=== PATIENT | male | born 1965 | race Hispanic/Latino ===

== ENCOUNTER 2023-04-13 10:04 | Inpatient (IN) | payer BC, OTHER ==
[~2023-04-13] VITALS: Ht 180.3 cm; Wt 95.3 kg
[2023-04-13] MEDS ORDERED: CEFAZOLIN SODIUM 2 GM VIAL IVPB STA (10:52)
[2023-04-13] MEDS ORDERED: 0.9%NACL 1000ML 1,000 ML IV ONE (11:00)
[2023-04-13 11:25] LABS: BASOPHILS # (AUTO) 0.02 K/uL (0.00-0.20); BASOPHILS % (AUTO) 0.2 % (0.0-5.0); EOSINOPHILS # (AUTO) 0.15 K/uL (0.00-0.70); EOSINOPHILS % (AUTO) 1.7 % (0.0-8.0); HEMATOCRIT 38.5 % (42-54); IMMATURE GRANULOCYTE ABSOLUTE 0.03 K/uL (0-1); LYMPHOCYTES # (AUTO) 1.3 K/uL (1.0-4.8); LYMPHOCYTES % (AUTO) 15.1 % (21.0-51.0); MEAN CORPUSCULAR HEMOGLOBIN 26.6 pg (27.0-33.0); MEAN CORPUSCULAR HGB CONC 31.4 g/dL (32.0-36.0); MEAN CORPUSCULAR VOLUME 84.6 fL (79-99); MONOCYTES % (AUTO) 10.8 % (3.0-13.0); NEUTROPHILS # (AUTO) 6.3 K/uL (1.8-7.7); NEUTROPHILS % (AUTO) 71.9 % (40.0-77.0); PLATELET COUNT (AUTO) 256 K/uL (130-400); RED BLOOD CELL COUNT(AUTO) 4.55 MIL/uL (4.50-6.20); RED CELL DISTRIBUTION WIDTH 16.7 % (11.0-15.5); WHITE BLOOD COUNT (AUTO) 8.8 K/uL (4.8-10.8)
[2023-04-13] MEDS ORDERED: DIPH,PERTUSS(ACELL),TET VAC/PF 0.5 ML VIAL IM ONE (11:30)
[2023-04-13 11:45] LABS: CREATININE 0.7 mg/dL (0.5-1.5); POTASSIUM 3.7 mmol/L (3.5-5.1)
[2023-04-13 11:50] LABS: ALBUMIN 3.2 g/dL (3.5-5.0); BILIRUBIN,TOTAL 0.3 mg/dL (0.2-1.0); TOTAL PROTEIN, SERUM 7.3 g/dL (6.0-8.3)
[2023-04-13] MEDS ORDERED: ACETAMINOPHEN 325 MG TAB PO PRN (14:30)
[2023-04-13] MEDS ORDERED: LACTULOSE 20 GM/30 ML UDCUP PO PRN (14:30)
[2023-04-13] MEDS ORDERED: ONDANSETRON 4MG INJ IV PRN (14:30)
[2023-04-13] MEDS ORDERED: VANCOMYCIN PROTOCOL PER PHARMACY IV PRN (14:30)
[2023-04-13] MEDS ORDERED: GUAIFENESIN-DM 200/20 MG 10 ML PO PRN (14:30)
[2023-04-13] MEDS ORDERED: NITROGLYCERIN 0.4 MG SL TAB SL PRN (14:30)
[2023-04-13] MEDS ORDERED: VANCOMYCIN 1G/250ML KIT 250 ML IV SCH (14:30)
[2023-04-13] MEDS ORDERED: MAG/ALUM/SIMETH 30 ML UDCUP PO PRN (14:30)
[2023-04-13] MEDS: VANCOMYCIN 1.25 GM/250 ML BAG 250 ML IV SCH ×2 (15:11→22:26)
[2023-04-13] MEDS: FAMOTIDINE 20MG VIAL IV SCH (20:15)
[2023-04-13] MEDS: ZOSYN 3.375GM+NS 50ML 50 ML IV SCH (20:15)
[2023-04-13] MEDS: MORPHINE 4 MG SYG IV PRN (20:36)
[2023-04-13 20:55] VITALS: O2SAT 96
[2023-04-13] MEDS: MUPIROCIN OINTMENT 22 GM TUBE TP SCH (21:10)
[2023-04-13] MEDS: ACETAMINOPHEN WITH CODEINE 1 TAB TAB PO PRN (23:34)
[2023-04-14] VITALS (9 sets, daily range): BP systolic 78–178; BP diastolic 53–105; PULSE 65–90; RESP 16–20; O2SAT 94–100
[2023-04-14] MEDS: MORPHINE 4 MG SYG IV PRN ×2 (03:54→20:43)
[2023-04-14] MEDS: ZOSYN 3.375GM+NS 50ML 50 ML IV SCH ×3 (03:54→20:42)
[2023-04-14] MEDS: VANCOMYCIN 1.25 GM/250 ML BAG 250 ML IV SCH ×3 (05:51→22:24)
[2023-04-14] MEDS: FAMOTIDINE 20MG VIAL IV SCH ×2 (08:54→20:42)
[2023-04-14] MEDS: HYDRALAZINE 20MG/ML VIAL IV PRN (08:54)
[2023-04-14] MEDS: ENOXAPARIN SODIUM 40 MG/0.4 ML SYRINGE SQ SCH (09:04)
[2023-04-14] MEDS: MUPIROCIN OINTMENT 22 GM TUBE TP SCH ×2 (09:05→14:46)
[2023-04-14] MEDS ORDERED: LOSARTAN 25 MG TABLET PO ONE (13:00)
[2023-04-14] MEDS: LOSARTAN 25 MG TABLET PO SCH (20:42)
[2023-04-15] VITALS (8 sets, daily range): BP systolic 125–148; BP diastolic 83–96; PULSE 71–96; RESP 18–20; O2SAT 94
[2023-04-15] MEDS: HYDRALAZINE 20MG/ML VIAL IV PRN (00:15)
[2023-04-15] MEDS: ZOSYN 3.375GM+NS 50ML 50 ML IV SCH (04:12)
[2023-04-15 04:48] LABS: BASOPHILS # (AUTO) 0.04 K/uL (0.00-0.20); BASOPHILS % (AUTO) 0.7 % (0.0-5.0); EOSINOPHILS # (AUTO) 0.15 K/uL (0.00-0.70); EOSINOPHILS % (AUTO) 2.6 % (0.0-8.0); HEMATOCRIT 40.8 % (42-54); IMMATURE GRANULOCYTE ABSOLUTE 0.01 K/uL (0-1); LYMPHOCYTES # (AUTO) 1.5 K/uL (1.0-4.8); LYMPHOCYTES % (AUTO) 25.5 % (21.0-51.0); MEAN CORPUSCULAR HEMOGLOBIN 26.3 pg (27.0-33.0); MEAN CORPUSCULAR HGB CONC 31.4 g/dL (32.0-36.0); MEAN CORPUSCULAR VOLUME 83.8 fL (79-99); MONOCYTES # (AUTO) 0.7 K/uL (0.1-1.0); MONOCYTES % (AUTO) 12.3 % (3.0-13.0); NEUTROPHILS # (AUTO) 3.3 K/uL (1.8-7.7); NEUTROPHILS % (AUTO) 58.7 % (40.0-77.0); PLATELET COUNT (AUTO) 280 K/uL (130-400); RED BLOOD CELL COUNT(AUTO) 4.87 MIL/uL (4.50-6.20); RED CELL DISTRIBUTION WIDTH 16.6 % (11.0-15.5); WHITE BLOOD COUNT (AUTO) 5.7 K/uL (4.8-10.8)
[2023-04-15 05:14] LABS: CREATININE 0.7 mg/dL (0.5-1.5); POTASSIUM 3.2 mmol/L (3.5-5.1)
[2023-04-15] MEDS: VANCOMYCIN 1.25 GM/250 ML BAG 250 ML IV SCH (05:49)
[2023-04-15] MEDS: FAMOTIDINE 20MG VIAL IV SCH ×2 (10:05→20:55)
[2023-04-15] MEDS: ENOXAPARIN SODIUM 40 MG/0.4 ML SYRINGE SQ SCH (10:06)
[2023-04-15] MEDS: LOSARTAN 25 MG TABLET PO SCH ×2 (10:06→20:55)
[2023-04-15] MEDS: MORPHINE 4 MG SYG IV PRN ×3 (10:12→20:55)
[2023-04-15] MEDS: MUPIROCIN OINTMENT 22 GM TUBE TP SCH (10:18)
[2023-04-15] MEDS: ACETAMINOPHEN WITH CODEINE 1 TAB TAB PO PRN (13:07)
[2023-04-15] MEDS: CEFAZOLIN SODIUM 2 GM VIAL IVPB SCH ×2 (13:50→20:55)
[2023-04-15] MEDS ORDERED: NICOTINE 21 MG/ 24 HR PATCH TD SCH (16:30)
[2023-04-15] MEDS ORDERED: GADOTERATE MEGLUMINE 10 MMOL/20 ML VIAL IV ONE (17:01)
[2023-04-16] VITALS (7 sets, daily range): BP systolic 155–173; BP diastolic 84–107; PULSE 63–77; RESP 16–20; O2SAT 98–99
[2023-04-16] MEDS: MORPHINE 4 MG SYG IV PRN ×5 (01:14→20:11)
[2023-04-16] MEDS: ACETAMINOPHEN WITH CODEINE 1 TAB TAB PO PRN ×3 (04:00→23:01)
[2023-04-16] MEDS: CEFAZOLIN SODIUM 2 GM VIAL IVPB SCH ×3 (05:14→20:04)
[2023-04-16] MEDS: FAMOTIDINE 20MG VIAL IV SCH ×2 (08:33→20:04)
[2023-04-16] MEDS: LOSARTAN 25 MG TABLET PO SCH ×2 (08:33→20:04)
[2023-04-16] MEDS: ENOXAPARIN SODIUM 40 MG/0.4 ML SYRINGE SQ SCH (08:33)
[2023-04-16] MEDS: MUPIROCIN OINTMENT 22 GM TUBE TP SCH (08:44)
[2023-04-16] MEDS ORDERED: POTASSIUM CHLORIDE 20MEQ/100ML 100 ML IV PRN (09:30)
[2023-04-16] MEDS ORDERED: POTASSIUM CHLORIDE 10% ELIXIR 20 MEQ/15 ML UDCUP PO PRN (09:30)
[2023-04-16] MEDS: KETOROLAC 15MG/ML VIAL (15MG/ML) IV PRN ×2 (11:31→18:37)
[2023-04-16] MEDS ORDERED: NICOTINE 21 MG/ 24 HR PATCH TD ONE (19:00)
[2023-04-16] MEDS: KCL 20 MEQ ERTAB PO PRN (19:44)
[2023-04-16] MEDS: HYDRALAZINE 20MG/ML VIAL IV PRN (23:14)
[2023-04-17] VITALS (8 sets, daily range): BP systolic 112–165; BP diastolic 61–93; PULSE 76–95; RESP 18–20; O2SAT 99
[2023-04-17] MEDS: MORPHINE 4 MG SYG IV PRN ×4 (00:14→23:33)
[2023-04-17] MEDS: KETOROLAC 15MG/ML VIAL (15MG/ML) IV PRN ×3 (02:30→20:21)
[2023-04-17] MEDS: CEFAZOLIN SODIUM 2 GM VIAL IVPB SCH ×3 (04:12→20:21)
[2023-04-17] MEDS: ACETAMINOPHEN WITH CODEINE 1 TAB TAB PO PRN ×2 (05:02→22:02)
[2023-04-17] MEDS: HYDRALAZINE 20MG/ML VIAL IV PRN (05:03)
[2023-04-17 05:13] LABS: CREATININE 0.7 mg/dL (0.5-1.5); POTASSIUM 3.5 mmol/L (3.5-5.1)
[2023-04-17 05:18] LABS: BASOPHILS # (AUTO) 0.02 K/uL (0.00-0.20); BASOPHILS % (AUTO) 0.4 % (0.0-5.0); EOSINOPHILS # (AUTO) 0.13 K/uL (0.00-0.70); EOSINOPHILS % (AUTO) 2.5 % (0.0-8.0); HEMATOCRIT 40.4 % (42-54); IMMATURE GRANULOCYTE ABSOLUTE 0.01 K/uL (0-1); LYMPHOCYTES # (AUTO) 1.4 K/uL (1.0-4.8); LYMPHOCYTES % (AUTO) 27.1 % (21.0-51.0); MEAN CORPUSCULAR HEMOGLOBIN 26.6 pg (27.0-33.0); MEAN CORPUSCULAR HGB CONC 31.4 g/dL (32.0-36.0); MEAN CORPUSCULAR VOLUME 84.5 fL (79-99); MONOCYTES # (AUTO) 0.6 K/uL (0.1-1.0); MONOCYTES % (AUTO) 11.5 % (3.0-13.0); NEUTROPHILS % (AUTO) 58.3 % (40.0-77.0); PLATELET COUNT (AUTO) 297 K/uL (130-400); RED BLOOD CELL COUNT(AUTO) 4.78 MIL/uL (4.50-6.20); RED CELL DISTRIBUTION WIDTH 16.6 % (11.0-15.5); WHITE BLOOD COUNT (AUTO) 5.1 K/uL (4.8-10.8)
[2023-04-17] MEDS: KCL 20 MEQ ERTAB PO PRN (06:08)
[2023-04-17] MEDS: MUPIROCIN OINTMENT 22 GM TUBE TP SCH (09:00)
[2023-04-17] MEDS: LOSARTAN 25 MG TABLET PO SCH ×2 (09:00→20:20)
[2023-04-17] MEDS: FAMOTIDINE 20MG VIAL IV SCH ×2 (09:00→20:20)
[2023-04-17] MEDS: ENOXAPARIN SODIUM 40 MG/0.4 ML SYRINGE SQ SCH (09:00)
[2023-04-17] MEDS ORDERED: KETOROLAC 30MG VIAL (30MG/ML) ONE (11:00)
[2023-04-18] MEDS ORDERED: NICOTINE 21 MG/ 24 HR PATCH TD SCH ×2 (00:30→09:00)
[2023-04-18 03:30] VITALS: BP 157/89; PULSE 87; RESP 17
[2023-04-18] MEDS: MORPHINE 4 MG SYG IV PRN (03:33)
[2023-04-18] MEDS: CEFAZOLIN SODIUM 2 GM VIAL IVPB SCH ×2 (03:35→14:44)
[2023-04-18] MEDS: ACETAMINOPHEN WITH CODEINE 1 TAB TAB PO PRN ×2 (04:36→14:45)
[2023-04-18] MEDS: KETOROLAC 15MG/ML VIAL (15MG/ML) IV PRN (06:24)
[2023-04-18 08:00] VITALS: BP 140/90; PULSE 74; RESP 17; O2SAT 99
[2023-04-18] MEDS ORDERED: LIDOCAINE 5% TOPICAL PATCH TP ONE (08:00)
[2023-04-18] MEDS ORDERED: MORPHINE 2 MG SYG IVP ONE (08:00)
[2023-04-18] MEDS ORDERED: CYCLOBENZAPRINE HCL 10 MG TABLET PO ONE (08:00)
[2023-04-18] MEDS: ENOXAPARIN SODIUM 40 MG/0.4 ML SYRINGE SQ SCH (08:09)
[2023-04-18] MEDS: LOSARTAN 25 MG TABLET PO SCH (08:10)
[2023-04-18] MEDS: FAMOTIDINE 20MG VIAL IV SCH (08:10)
[2023-04-18] MEDS: MUPIROCIN OINTMENT 22 GM TUBE TP SCH (08:11)
[2023-04-18 09:05] LABS: BASOPHILS # (AUTO) 0.03 K/uL (0.00-0.20); BASOPHILS % (AUTO) 0.6 % (0.0-5.0); EOSINOPHILS # (AUTO) 0.15 K/uL (0.00-0.70); EOSINOPHILS % (AUTO) 2.9 % (0.0-8.0); HEMATOCRIT 39.5 % (42-54); IMMATURE GRANULOCYTE ABSOLUTE 0.01 K/uL (0-1); LYMPHOCYTES # (AUTO) 1.5 K/uL (1.0-4.8); LYMPHOCYTES % (AUTO) 28.8 % (21.0-51.0); MEAN CORPUSCULAR HGB CONC 31.1 g/dL (32.0-36.0); MEAN CORPUSCULAR VOLUME 86.6 fL (79-99); MONOCYTES # (AUTO) 0.8 K/uL (0.1-1.0); MONOCYTES % (AUTO) 14.6 % (3.0-13.0); NEUTROPHILS # (AUTO) 2.7 K/uL (1.8-7.7); NEUTROPHILS % (AUTO) 52.9 % (40.0-77.0); PLATELET COUNT (AUTO) 253 K/uL (130-400); RED BLOOD CELL COUNT(AUTO) 4.56 MIL/uL (4.50-6.20); RED CELL DISTRIBUTION WIDTH 16.7 % (11.0-15.5); WHITE BLOOD COUNT (AUTO) 5.1 K/uL (4.8-10.8)
[2023-04-18 09:19] LABS: ALBUMIN 2.9 g/dL (3.5-5.0); BILIRUBIN,TOTAL 0.2 mg/dL (0.2-1.0); CREATININE 0.7 mg/dL (0.5-1.5); POTASSIUM 3.5 mmol/L (3.5-5.1); TOTAL PROTEIN, SERUM 6.5 g/dL (6.0-8.3)
[2023-04-18 12:00] VITALS: BP 144/89; PULSE 79; RESP 18
[2023-04-18 16:00] VITALS: BP 144/82; PULSE 69; RESP 18
== END 2023-04-18 17:10 | disposition home or self-care (01) | DRG 603 ==
LOC: EDH 10:04 → EDHIP 14:19 → 3AH 20:07
PROVIDERS: ADMIT Internal Medicine; ATTEND Internal Medicine
PROC: 3E0234Z Introduction of Serum, Toxoid and Vaccine into Muscle, Percutaneous Approach (ICD-10-PCS; principal; 2023-04-13)
DX: L03.113 Cellulitis of right upper limb (principal); L02.511 Cutaneous abscess of right hand; E44.1 Mild protein-calorie malnutrition; S61.411A Laceration without foreign body of right hand, initial encounter; E66.9 Obesity, unspecified; E87.6 Hypokalemia; I10 Essential (primary) hypertension; Z23 Encounter for immunization; B95.7 Other staphylococcus as the cause of diseases classified elsewhere; B95.4 Other streptococcus as the cause of diseases classified elsewhere; M25.511 Pain in right shoulder; F17.200 Nicotine dependence, unspecified, uncomplicated; T20.22XA Burn of second degree of lip(s), initial encounter; X08.8XXA Exposure to other specified smoke, fire and flames, initial encounter; Y93.89 Activity, other specified; Y92.89 Other specified places as the place of occurrence of the external cause; Y99.8 Other external cause status
CPT/HCPCS: 36415; 73030; 73130; 73200; 73220; 80048; 80053; 80202; 82948; 83605; 83735; 84145; 85025; 87040; 87070; 87076; 87077; 87186; 90715; 99291; G0378; J0360; J1650; J1885; J2270; J2543; J3490; J7030; 3370; A9575; J0690